=== PATIENT | male | born 1975 ===

== ENCOUNTER 2017-06-24 12:45 | Emergency (ER) | payer MEDICAID ==
[2017-06-24 12:53] VITALS: RESP 18; TEMP 97; O2SAT 95
[2017-06-24] MEDS ORDERED: Sodium Chloride 0.9% 1,000 ML IV STA (13:08)
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
[2017-06-24 13:35] LABS: BASO # 0.1 K/uL (0.0-0.2); BASO % 0.6 % (0.0-2.0); EOS # 0.2 K/uL (0.0-0.7); EOS % 1.4 % (0.0-4.0); HEMOGLOBIN 15.1 g/dL (12.0-18.0); LYMPH # 3.4 K/uL (1.0-4.3); LYMPH % 26.4 % (20.0-40.0); MEAN CELL VOLUME 95.3 fl (80.0-94.0); MEAN CORPUSCULAR HGB CONC 33.5 g/dL (33.0-37.0); MEAN PLATELET VOLUME 9.8 fl (7.2-11.7); MONO # 0.6 K/uL (0.0-0.8); MONO % 4.3 % (0.0-10.0); NEUT # 8.7 K/uL (1.8-7.0); NEUT % 67.3 % (50.0-75.0); NRBC % 0.1 % (0.0-0.0); RBC 4.74 Mil/uL (4.40-5.90); RED CELL DISTRIBUTION WIDTH 13.9 % (11.5-14.5); WHITE BLOOD COUNT 12.9 K/uL (4.8-10.8)
[2017-06-24 13:45] LABS: INR 1.1 (0.9-1.2); PROTHROMBIN TIME 12.2 Seconds (9.8-13.1)
[2017-06-24 14:02] LABS: CALCIUM 8.7 mg/dL (8.4-10.2); GFR AFRICAN-AMERICAN > 60; GFR NON-AFRICAN AMERICAN > 60
[2017-06-24 14:04] LABS: ALB/GLOB RATIO 1.1 (1.0-2.1); ALBUMIN 4.3 g/dL (3.5-5.0); ALT/SGPT 22 U/L (21-72); AST/SGOT 30 U/L (17-59); BLOOD UREA NITROGEN 15 mg/dl (9-20)
[2017-06-24 14:09] VITALS: BP 120/85; PULSE 80
[2017-06-24 14:12] LABS: BARBITURATES, UR NEGATIVE (NEGATIVE); OPIATES, UR NEGATIVE (NEGATIVE); PHENCYCLIDINE, UR NEGATIVE (NEGATIVE)
[2017-06-24 14:15] LABS: BENZODIAZEPINES, UR POSITIVE (NEGATIVE)
--- NOTE | 2017-06-24 14:21 | RAD ---
HISTORY: cough COMPARISON: No prior. FINDINGS: LUNGS: The interstitial markings are somewhat coarsened and increased particularly in the perihilar regions. . Findings may in part be due to poor inspiration with low lung volumes and crowded bronchovascular markings however the possibility of developing interstitial infiltrates and or pulmonary edema/CHF to be excluded. PLEURA: No significant pleural effusion identified, no pneumothorax apparent. CARDIOVASCULAR: Normal. OSSEOUS STRUCTURES: No significant abnormalities. VISUALIZED UPPER ABDOMEN: Normal. OTHER FINDINGS: None. IMPRESSION: The interstitial markings are somewhat coarsened and increased particularly in the perihilar regions. . Findings may in part be due to poor inspiration with low lung volumes and crowded bronchovascular markings however the possibility of developing interstitial infiltrates and or pulmonary edema/CHF to be excluded.
[2017-06-24 14:31] LABS: ACETAMINOPHEN < 10.0 ug/ml (10.0-30.0); SALICYLATE < 1.0 mg/dl
--- NOTE | 2017-06-26 10:50 | CARD ---
APPROVED REPORT EKG Measurement Heart [id number] NM [id number] <Conclusion> Normal sinus rhythm Normal ECG
== END 2017-06-24 14:05 | disposition home or self-care (01) ==
LOC: H.ER 12:45
DX: F19.10 Other psychoactive substance abuse, uncomplicated (principal)
CPT/HCPCS: 71010; 80053; 80320; 80324; 80329; 80345; 80346; 80349; 80353; 80358; 80361; 83992; 85025; 85610; 93005; 99282; J7040

== ENCOUNTER 2017-06-25 19:49 | Emergency (ER) | payer MEDICAID ==
[2017-06-25 19:56] VITALS: BMI 26.6
[2017-06-25 20:52] LABS: BASO # 0.1 K/uL (0.0-0.2); BASO % 0.8 % (0.0-2.0); EOS # 0.1 K/uL (0.0-0.7); EOS % 0.4 % (0.0-4.0); HEMOGLOBIN 15.3 g/dL (12.0-18.0); LYMPH # 2.8 K/uL (1.0-4.3); LYMPH % 17.4 % (20.0-40.0); MEAN CELL VOLUME 94.8 fl (80.0-94.0); MEAN CORPUSCULAR HEMOGLOBIN 31.3 pg (27.0-31.0); MEAN PLATELET VOLUME 10.1 fl (7.2-11.7); MONO # 0.9 K/uL (0.0-0.8); MONO % 5.9 % (0.0-10.0); NEUT # 12.1 K/uL (1.8-7.0); NEUT % 75.5 % (50.0-75.0); NRBC % 0.1 % (0.0-0.0); RBC 4.88 Mil/uL (4.40-5.90); RED CELL DISTRIBUTION WIDTH 13.7 % (11.5-14.5)
[2017-06-25 21:01] LABS: ALB/GLOB RATIO 1.2 (1.0-2.1); ALBUMIN 4.5 g/dL (3.5-5.0); ALT/SGPT 43 U/L (21-72); AST/SGOT 83 U/L (17-59); BLOOD UREA NITROGEN 17 mg/dl (9-20); GFR AFRICAN-AMERICAN > 60; GFR NON-AFRICAN AMERICAN > 60
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
[2017-06-25 23:53] LABS: URINE BILIRUBIN NEGATIVE (NEGATIVE); URINE BLOOD SMALL (NEGATIVE); URINE CLARITY SLIGHTY-CLOUDY (Clear); URINE COLOR YELLOW (YELLOW); URINE GLUCOSE (UA) NEG (Normal); URINE LEUKOCYTE ESTERASE NEG Leu/uL (Negative); URINE NITRATE NEGATIVE (NEGATIVE); URINE PROTEIN 30 mg/dL (NEGATIVE); URINE UROBILINOGEN 0.2-1.0 mg/dL (0.2-1.0)
[2017-06-26 00:18] LABS: BARBITURATES, UR NEGATIVE (NEGATIVE); OPIATES, UR NEGATIVE (NEGATIVE); PHENCYCLIDINE, UR NEGATIVE (NEGATIVE)
[2017-06-26 00:21] LABS: BENZODIAZEPINES, UR POSITIVE (NEGATIVE)
[2017-06-26 00:51] VITALS: BP 127/70; PULSE 80; RESP 16; TEMP 98; O2SAT 98
--- NOTE | 2017-06-26 00:51 | ED PDOC ---
- Laboratory Results Result Diagrams: 06/25/17 20:43 06/25/17 20:43 - ECG O2 Sat by Pulse Oximetry: 98 - Progress ED Course And Treament: seen by crisis cleared by dr. chavarria diagnosis Cannabis abuse disorder severe. Disposition - Clinical Impression Clinical Impression: Suicidal ideation, Cannabis abuse - POA Present On Arrival: None - Disposition Disposition: Routine/Home Disposition Time: 00:50 Condition: FAIR Instructions: Cannabis Abuse (ED) Forms: [employer] (Nigerian)
--- NOTE | 2017-06-26 08:17 | RAD ---
HISTORY: clearance COMPARISON: Chest radiograph 06/24/2017. FINDINGS: LUNGS: Trace atelectasis question in the right base the remaining lung solis clear. Overall diminished inspiratory volume is appreciated. PLEURA: No significant pleural effusion identified, no pneumothorax apparent. CARDIOVASCULAR: Normal. OSSEOUS STRUCTURES: No significant abnormalities. VISUALIZED UPPER ABDOMEN: Normal. OTHER FINDINGS: None. IMPRESSION: Diminished history volume. Trace atelectasis is suggested the right base with remaining lung solis clear.
--- NOTE | 2017-06-26 10:51 | CARD ---
APPROVED REPORT EKG Measurement Heart [id number] IA [id number] <Conclusion> Normal sinus rhythm Normal ECG
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
== END 2017-06-26 01:24 ==
LOC: H.ER 19:49
DX: R45.851 Suicidal ideations (principal); F12.10 Cannabis abuse, uncomplicated
CPT/HCPCS: 70450; 71010; 80053; 80320; 80324; 80345; 80346; 80349; 80353; 80358; 80361; 81003; 83992; 85025; 93005; 96372; 99285; J1630; J2060